=== PATIENT | female | born 1980 | race Caucasian/White ===

== ENCOUNTER 2017-05-15 21:41 | Observation (INO) | payer OTHER ==
[~2017-05-15] VITALS: Ht 167.6 cm; Wt 55.0 kg
[2017-05-15 22:14] LABS: DAU SCREEN DISCLAIMER
[2017-05-15] MEDS ORDERED: SODIUM CHLORIDE FLUSH 10ML SYR IVF ONE (22:30)
[2017-05-15] MEDS ORDERED: SODIUM CHLORIDE 0.9% 1,000ML IVBOLUS ONE (22:30)
[2017-05-15 22:47] LABS: ASPARTATE AMINO TRANSFERASE 22 U/L (15-37); BLOOD UREA NITROGEN 11 mg/dL (7-18)
[2017-05-15 22:51] LABS: HEMATOCRIT 38.1 % (34.6-47.8); WHITE BLOOD COUNT 6.1 x10^3/uL (3.4-10)
[2017-05-15 22:53] LABS: ACETAMINOPHEN < 2 mcg/mL (10-30)
[2017-05-16] MEDS ORDERED: TRAZ50TA18 PO (03:34)
[2017-05-16] MEDS ORDERED: ONDANSETRON ODT 4 MG PO PRN (04:00)
[2017-05-16] MEDS ORDERED: ACETAMINOPHEN 325 MG TABLET PO PRN (04:00)
[2017-05-16 04:22] VITALS: BP 106/68
[2017-05-16 08:35] VITALS: BP 109/65
== END 2017-05-16 18:49 ==
LOC: ED 22:18 → EDIP 05-16 03:26 → 3E 05-16 04:19
PROVIDERS: ADMIT Internal Medicine; ATTEND Family Medicine
DX: T43.212A Poisoning by selective serotonin and norepinephrine reuptake inhibitors, intentional self-harm, initial encounter (principal); R40.0 Somnolence; F90.9 Attention-deficit hyperactivity disorder, unspecified type; Y92.89 Other specified places as the place of occurrence of the external cause
CPT/HCPCS: 36415; 80053; 80307; 80329; 84703; 85025; 93005; 96360; 99285; G0378; J7030; G0479; G0480

== ENCOUNTER → 2017-07-22 | Outpatient (CLI) | payer OTHER ==
[~2017-07-22] MED LIST: CITA20TA5 PO; DEXAMETHASONE 4 MG/ML, 1ML ONE; FENTANYL PF 100 MCG/2ML ONE; METOCLOPRAMIDE 5 MG/ML, 2ML ONE; MIDAZOLAM 1 MG/ML, 2ML ONE; PROPOFOL 10 MG/ML, 20ML ONE; ROCURONIUM 10 MG/ML,10ML ONE; SUCCINYLCHOLINE 20 MG/ML, 10ML ONE; TRAZ50TA18 PO; [UNRECOGNIZED DRUG - OTHER] PO
== END | disposition home or self-care (01) ==
LOC: STAR 12:07
PROVIDERS: ATTEND Obstetrics & Gynecology
DX: Z30.2 Encounter for sterilization (principal); N92.0 Excessive and frequent menstruation with regular cycle; Z88.2 Allergy status to sulfonamides
CPT/HCPCS: 36415; 81001; 84703; 93005

== ENCOUNTER 2017-07-26 05:50 | Day surgery (SDC) | payer OTHER ==
[~2017-07-26] VITALS: Ht 167.6 cm; Wt 54.3 kg
[~2017-07-26 05:50] MED LIST changes: -DEXAMETHASONE 4 MG/ML, 1ML ONE; -FENTANYL PF 100 MCG/2ML ONE; -METOCLOPRAMIDE 5 MG/ML, 2ML ONE; -MIDAZOLAM 1 MG/ML, 2ML ONE; -PROPOFOL 10 MG/ML, 20ML ONE; -ROCURONIUM 10 MG/ML,10ML ONE; -SUCCINYLCHOLINE 20 MG/ML, 10ML ONE
[2017-07-26] MEDS ORDERED: LACTATED RINGERS 1,000 ML IV SCH (06:19)
[2017-07-26 06:20] VITALS: BP 107/71
[2017-07-26] MEDS ORDERED: LIDOCAINE 1%, 2ML SQ PRN (06:30)
[2017-07-26 06:54] LABS: HCG UR LOT HCG7030192; HCG UR OBC PASS
[2017-07-26] MEDS ORDERED: BUPIVACAINE/PF 0.25% ONE (06:58)
[2017-07-26] MEDS ORDERED: EPINEPHRINE 1 MG/ML, 1ML ONE (06:59)
[2017-07-26] MEDS ORDERED: SILVER NITRATE STICK TP ONE (06:59)
[2017-07-26] MEDS ORDERED: METOCLOPRAMIDE 5 MG/ML, 2ML IV PRN (07:30)
[2017-07-26] MEDS ORDERED: HYDROcodone/APAP 7.5-325MG/15ML UDC PO PRN (07:30)
[2017-07-26] MEDS ORDERED: LABETALOL 5MG/ML, 20ML IV PRN (07:30)
[2017-07-26] MEDS ORDERED: hydrALAzine 20 MG/ML, 1ML IV PRN (07:30)
[2017-07-26] MEDS ORDERED: MIDAZOLAM 1 MG/ML, 2ML IV PRN (07:30)
[2017-07-26] MEDS ORDERED: HYDROmorphone 1 MG/ML, 1ML IV PRN (07:30)
[2017-07-26] MEDS ORDERED: PROMETHAZINE 25 MG/ML, 1ML IV PRN (07:30)
[2017-07-26] MEDS ORDERED: METOPROLOL 1 MG/ML, 5ML IV PRN (07:30)
[2017-07-26] MEDS ORDERED: OXYcodone 5 MG/5 ML ORAL.SOL UDC PO PRN (07:30)
[2017-07-26] MEDS ORDERED: ALBUTEROL SULFATE 2.5 MG/3 ML NPPB PRN (07:30)
[2017-07-26] MEDS ORDERED: MEPERIDINE/PF 25MG/0.5ML IVPush PRN (07:30)
[2017-07-26] MEDS ORDERED: FENTANYL PF 100 MCG/2ML IV PRN (07:30)
[2017-07-26] MEDS ORDERED: EPHEDRINE 50 MG/ML, 1ML IVPush PRN (07:30)
[2017-07-26] MEDS ORDERED: ACETAMINOPHEN 325 MG TABLET PO PRN (07:30)
[2017-07-26] MEDS ORDERED: KETOROLAC 30 MG/1 ML IV PRN (07:30)
[2017-07-26] MEDS ORDERED: PROMETHAZINE 25 MG/ML, 1ML ONE (09:05)
[2017-07-26] MEDS ORDERED: ACETAMINOPHEN 325 MG TABLET ONE (09:05)
[2017-07-26] MEDS ORDERED: OXYcodone 5 MG/5 ML ORAL.SOL UDC ONE (09:05)
[2017-07-26] MEDS ORDERED: KETOROLAC 30 MG/1 ML ONE (09:11)
[2017-07-26] MEDS ORDERED: FENTANYL PF 100 MCG/2ML ONE (09:41)
[2017-07-26] MEDS ORDERED: SUCCINYLCHOLINE 20 MG/ML, 10ML ONE (15:19)
[2017-07-26] MEDS ORDERED: ROCURONIUM 10 MG/ML,10ML ONE (15:19)
[2017-07-26] MEDS ORDERED: PROPOFOL 10 MG/ML, 20ML ONE (15:19)
[2017-07-26] MEDS ORDERED: ONDANSETRON 2MG/ML, 2ML ONE (15:19)
[2017-07-26] MEDS ORDERED: METOCLOPRAMIDE 5 MG/ML, 2ML ONE (15:19)
== END 2017-07-26 11:05 ==
LOC: OUT 05:50
PROVIDERS: ATTEND Obstetrics & Gynecology
DX: N92.0 Excessive and frequent menstruation with regular cycle (principal); Z30.2 Encounter for sterilization
CPT/HCPCS: 58563; 58670; 81025; 88302; 88305; J0171; J0330; J1100; J1885; J2250; J2405; J2550; J2704; J2765; J3010; J3490; J7120